=== PATIENT | female | born 1995 | race Caucasian/White ===

== ENCOUNTER 2017-11-05 01:09 | Emergency (ER) | payer OTHER ==
[~2017-11-05] VITALS: Ht 175.3 cm; Wt 117.9 kg
[~2017-11-05 01:09] MED LIST changes: -CEFU500T30 PO; -Percocet 5-3251 EACH PO; -Zofran Odt4 MG SL
[2017-11-05] MEDS ORDERED: CEFU500T30 PO (01:31)
[2017-11-05 02:37] LABS: BASOPHILS ABSOLUTE AUTO 0.02 K/mm3 (0.00-0.23); BASOPHILS PERCENT AUTO 0 % (0-2); EOSINOPHILS ABSOLUTE AUTO 0.03 K/mm3 (0.00-0.68); EOSINOPHILS PERCENT AUTO 0 % (0-6); Hematocrit 43.1 % (33.0-51.0); Hemoglobin 14.4 g/dL (11.5-16.0); IMMATURE GRAN ABSOLUTE AUTO 0.01 K/mm3 (0.00-0.10); IMMATURE GRAN PERCENT AUTO 0 % (0-1); LYMPHOCYTES ABSOLUTE AUTO 1.41 K/mm3 (0.84-5.20); LYMPHOCYTES PERCENT AUTO 19 % (21-46); MONOCYTES ABSOLUTE AUTO 0.68 K/mm3 (0.16-1.47); MONOCYTES PERCENT AUTO 9 % (4-13); Mean Corpuscular HGB 28.1 pg (26.0-34.0); Mean Corpuscular HGB Conc 33.4 g/dL (31.5-36.5); Mean Corpuscular Volume 84 fL (80-100); Mean Platelet Volume 8.9 fL (9.1-12.4); NEUTROPHILS ABSOLUTE AUTO 5.46 K/mm3 (1.96-9.15); NEUTROPHILS PERCENT AUTO 72 % (41-73); Platelet Count 179 K/mm3 (150-400); RDW Standard Deviation 36.6 fL (35.1-46.3); Red Blood Cell Count 5.12 M/mm3 (3.80-5.20); White Blood Cell Count 7.61 K/mm3 (4.00-11.30)
[2017-11-05 02:53] LABS: Anion Gap 9 mmol/L (6-16); Blood Urea Nitrogen 7 mg/dL (8-24); Bun/Creatinine Ratio 8.3 (12.0-20.0); CO2, Blood 26 mmol/L (21-32); Calcium, Blood 8.9 mg/dL (8.5-10.1); Chloride, Blood 104 mmol/L (98-108); Creatinine, Blood 0.84 mg/dL (0.40-1.00); Glomerular Filtration Rate >60 (60-); Glucose, Blood 115 mg/dL (70-99); Potassium, Blood 3.8 mmol/L (3.5-5.5); Sodium, Blood 139 mmol/L (136-145)
[2017-11-05] MEDS ORDERED: Percocet 5-3251 EACH PO (03:26)
[2017-11-05] MEDS ORDERED: Zofran Odt4 MG SL (03:26)
== END 2017-11-05 03:40 | disposition home or self-care (01) ==
LOC: ER 01:09
PROVIDERS: Emergency Medicine
DX: J02.9 Acute pharyngitis, unspecified (principal); E86.0 Dehydration; F17.210 Nicotine dependence, cigarettes, uncomplicated; Z88.2 Allergy status to sulfonamides; Z79.899 Other long term (current) drug therapy
CPT/HCPCS: 36415; 80048; 85025; 86308; 87081; 87430; 96361; 96365; 96375; 99284; J0696; J2405; J2930; J3010; J7030

== ENCOUNTER → 2017-11-05 | Outpatient (CLI) | payer OTHER ==
[~2017-11-05] MED LIST: AMOX500 PO; BIRTH CONTROL; CEFU500T30 PO; CEPH500 PO; CLON1 PO; CRUTCH4 USE; HYDACE10B PO; IBUP400 PO; Indomethacin25 MG PO; LEVSOD50 PO; NAPR550 PO; Norco 5-325 Ta1 EACH PO; OMEP20ER PO; ONDA8ODT MM; Percocet 5-3251 EACH PO; Protonix40 MG PO; RANI150 PO; RXOXYACE PO; Zofran Odt4 MG SL; Zofran4 MG PO; Zofran8 MG PO; [UNRECOGNIZED DRUG - OTHER] PO
== END ==
LOC: LAB 16:07 → LAB SHORT 16:07
DX: Z11.3 Encounter for screening for infections with a predominantly sexual mode of transmission (principal)
CPT/HCPCS: 87070; 87205

== ENCOUNTER 2018-02-02 23:14 | Emergency (ER) | payer OTHER ==
[~2018-02-02] VITALS: Ht 175.3 cm; Wt 117.9 kg
[~2018-02-02 23:14] MED LIST changes: +CEFU500T30 PO; +Percocet 5-3251 EACH PO; +Zofran Odt4 MG SL
[2018-02-03 01:08] LABS: BASOPHILS ABSOLUTE AUTO 0.03 K/mm3 (0.00-0.23); BASOPHILS PERCENT AUTO 0 % (0-2); EOSINOPHILS ABSOLUTE AUTO 0.21 K/mm3 (0.00-0.68); EOSINOPHILS PERCENT AUTO 2 % (0-6); Hematocrit 40.8 % (33.0-51.0); Hemoglobin 13.6 g/dL (11.5-16.0); IMMATURE GRAN ABSOLUTE AUTO 0.03 K/mm3 (0.00-0.10); IMMATURE GRAN PERCENT AUTO 0 % (0-1); LYMPHOCYTES ABSOLUTE AUTO 2.35 K/mm3 (0.84-5.20); LYMPHOCYTES PERCENT AUTO 24 % (21-46); MONOCYTES PERCENT AUTO 7 % (4-13); Mean Corpuscular HGB 28.5 pg (26.0-34.0); Mean Corpuscular HGB Conc 33.3 g/dL (31.5-36.5); Mean Corpuscular Volume 85 fL (80-100); Mean Platelet Volume 8.7 fL (9.1-12.4); NEUTROPHILS ABSOLUTE AUTO 6.34 K/mm3 (1.96-9.15); NEUTROPHILS PERCENT AUTO 66 % (41-73); Platelet Count 246 K/mm3 (150-400); RDW Coefficient Variation 12.7 % (11.7-14.2); RDW Standard Deviation 39.7 fL (35.1-46.3); Red Blood Cell Count 4.78 M/mm3 (3.80-5.20); White Blood Cell Count 9.66 K/mm3 (4.00-11.30)
[2018-02-03 01:26] LABS: Alanine Aminotransfer (ALT/SGP 31 U/L (12-78); Alk Phos 70 U/L (50-136); Anion Gap 8 mmol/L (6-16); Aspartate Aminotrans (AST/SGOT 17 U/L (12-37); Bilirubin, Total 0.4 mg/dL (0.1-1.0); Blood Urea Nitrogen 10 mg/dL (8-24); Bun/Creatinine Ratio 12.9 (12.0-20.0); CO2, Blood 25 mmol/L (21-32); Calcium, Blood 8.6 mg/dL (8.5-10.1); Chloride, Blood 106 mmol/L (98-108); Creatinine, Blood 0.77 mg/dL (0.40-1.00); Glomerular Filtration Rate >60 (60-); Glucose, Blood 85 mg/dL (70-99); Sodium, Blood 139 mmol/L (136-145)
[2018-02-03 01:44] LABS: Source, Urine Voided
[2018-02-03 01:48] LABS: Bilirubin, Urine Neg (Neg); Blood, Urine Neg (Neg); Glucose Qualitative, Urine Neg (Neg); Ketones, Urine Neg (Neg); Leukocyte Esterase, Urine Neg (Neg); Nitrite, Urine Neg (Neg); Protein, Urine Neg (Neg); Specific Gravity, Urine 1.015 (1.003-1.022); Urobilinogen, Urine NORM (Normal)
[2018-02-03 01:54] LABS: Appearance, Urine Clear (Clear); Color, Urine Yellow (P-Yellow)
== END 2018-02-03 03:15 | disposition home or self-care (01) ==
LOC: ER 23:14
PROVIDERS: Emergency Medicine
DX: K62.5 Hemorrhage of anus and rectum (principal); Z88.2 Allergy status to sulfonamides; E03.9 Hypothyroidism, unspecified; F17.210 Nicotine dependence, cigarettes, uncomplicated
CPT/HCPCS: 36415; 80053; 81003; 83690; 85025; 99283

== ENCOUNTER 2018-02-21 20:09 | Emergency (ER) | payer OTHER ==
[2018-02-22] MEDS ORDERED: Verotin-Gr Cap1 EACH PO (10:13)
== END 2018-02-21 21:15 | disposition left against medical advice (07) ==
LOC: ER 20:09
DX: Z53.21 Procedure and treatment not carried out due to patient leaving prior to being seen by health care provider (principal)

== ENCOUNTER 2018-02-22 09:42 | Emergency (ER) | payer OTHER ==
[~2018-02-22] VITALS: Ht 172.7 cm; Wt 117.9 kg
[2018-02-22] MEDS ORDERED: Verotin-Gr Cap1 EACH PO (10:13)
[2018-02-22 10:37] LABS: Bilirubin, Urine Neg (Neg); Blood, Urine 1+ (Neg); Glucose Qualitative, Urine Neg (Neg); Ketones, Urine Neg (Neg); Leukocyte Esterase, Urine Neg (Neg); Nitrite, Urine Neg (Neg); Protein, Urine 1+ (Neg); Urobilinogen, Urine NORM (Normal)
[2018-02-22 10:51] LABS: Appearance, Urine Hazy (Clear); Color, Urine Yellow (P-Yellow)
[2018-02-22 10:52] LABS: Squamous Epithelial Cells Mod /hpf (Few)
[2018-02-22 10:53] LABS: Bacteria Mod /hpf; Red Blood Cells, Urine Not Seen /hpf (0-2)
== END 2018-02-22 11:30 | disposition home or self-care (01) ==
LOC: ER 09:42
PROVIDERS: Emergency Medicine
DX: O20.0 Threatened abortion (principal); Z3A.01 Less than 8 weeks gestation of pregnancy; Z88.2 Allergy status to sulfonamides; Z79.899 Other long term (current) drug therapy; Z87.891 Personal history of nicotine dependence
CPT/HCPCS: 36415; 76801; 81001; 84702; 86900; 86901; 87086

== ENCOUNTER → 2018-09-11 | Outpatient (CLI) | payer OTHER ==
[~2018-09-11] MED LIST changes: +Verotin-Gr Cap1 EACH PO
== END | disposition home or self-care (01) ==
LOC: LAB 11:57 → LAB SHORT 11:57
DX: Z34.00 Encounter for supervision of normal first pregnancy, unspecified trimester (principal)
CPT/HCPCS: 87081; 87653

== ENCOUNTER 2018-09-23 08:34 | Inpatient (IN) | payer OTHER ==
[~2018-09-23] VITALS: Ht 172.7 cm; Wt 0.1 kg
[2018-09-23 09:12] LABS: BASOPHILS ABSOLUTE AUTO 0.02 K/mm3 (0.00-0.23); BASOPHILS PERCENT AUTO 0 % (0-2); EOSINOPHILS ABSOLUTE AUTO 0.21 K/mm3 (0.00-0.68); EOSINOPHILS PERCENT AUTO 2 % (0-6); Hematocrit 36.8 % (33.0-51.0); Hemoglobin 12.1 g/dL (11.5-16.0); IMMATURE GRAN ABSOLUTE AUTO 0.05 K/mm3 (0.00-0.10); IMMATURE GRAN PERCENT AUTO 0 % (0-1); LYMPHOCYTES PERCENT AUTO 17 % (21-46); MONOCYTES PERCENT AUTO 7 % (4-13); Mean Corpuscular HGB 27.1 pg (26.0-34.0); Mean Corpuscular HGB Conc 32.9 g/dL (31.5-36.5); Mean Corpuscular Volume 83 fL (80-100); Mean Platelet Volume 10.1 fL (9.1-12.4); NEUTROPHILS PERCENT AUTO 74 % (41-73); Platelet Count 235 K/mm3 (150-400); RDW Coefficient Variation 13.7 % (11.7-14.2); RDW Standard Deviation 40.9 fL (35.1-46.3); Red Blood Cell Count 4.46 M/mm3 (3.80-5.20); White Blood Cell Count 12.58 K/mm3 (4.00-11.30)
[2018-09-24 05:58] LABS: Hematocrit 29.6 % (33.0-51.0); Hemoglobin 9.4 g/dL (11.5-16.0); Mean Corpuscular HGB 26.9 pg (26.0-34.0); Mean Corpuscular HGB Conc 31.8 g/dL (31.5-36.5); Mean Corpuscular Volume 85 fL (80-100); Mean Platelet Volume 9.8 fL (9.1-12.4); Platelet Count 184 K/mm3 (150-400); RDW Standard Deviation 42.6 fL (35.1-46.3); White Blood Cell Count 11.52 K/mm3 (4.00-11.30)
--- NOTE | 2018-09-24 12:55 | NUR ---
PT DISCHARGED. DISCHARGE INSTRUCTIONS GIVEN. NO QUESTIONS OR CONCERNS AT THIS TIME. PT FOLLOW[facility].
== END 2018-09-24 12:45 | disposition home or self-care (01) | DRG 807 ==
LOC: BC 08:34 → OBS 08:34 → BC 08:46
PROVIDERS: ADMIT Obstetrics & Gynecology
PROC: 10E0XZZ Delivery of Products of Conception, External Approach (ICD-10-PCS; principal; 2018-09-23)
PROC: 6A550ZT Pheresis of Cord Blood Stem Cells, Single (ICD-10-PCS; 2018-09-23)
DX: O99.214 Obesity complicating childbirth (principal); Z37.0 Single live birth; O99.820 Streptococcus B carrier state complicating pregnancy; Z87.891 Personal history of nicotine dependence; O69.81X0 Labor and delivery complicated by cord around neck, without compression, not applicable or unspecified; Z3A.37 37 weeks gestation of pregnancy; O70.9 Perineal laceration during delivery, unspecified
CPT/HCPCS: 36415; 51702; 85025; 85027; J0290; J1885; J2405; J2590; J3010; J7120

== ENCOUNTER → 2019-05-10 | Outpatient (CLI) | payer OTHER | LOC: LAB EV 14:15 → LAB SHORT 14:15 | DX: N39.0 Urinary tract infection, site not specified (principal) | CPT/HCPCS: 87086 ==

== ENCOUNTER 2020-10-09 23:49 | Emergency (ER) | payer OTHER ==
[~2020-10-09] VITALS: Ht 172.7 cm; Wt 138.3 kg
[2020-10-10 00:34] LABS: Source, Urine Clean Catch
[2020-10-10 00:39] LABS: Bilirubin, Urine Neg (Neg); Blood, Urine Neg (Neg); Glucose Qualitative, Urine Neg (Neg); Ketones, Urine Neg (Neg); Leukocyte Esterase, Urine 1+ (Neg); Nitrite, Urine Neg (Neg); Protein, Urine Neg (Neg); Specific Gravity, Urine 1.025 (1.003-1.022); Urobilinogen, Urine NORM (Normal)
[2020-10-10] MEDS ORDERED: ESCI20 PO (00:41)
[2020-10-10] MEDS ORDERED: METF500 PO (00:41)
[2020-10-10 00:52] LABS: Amorphous Light (0-Heavy); Appearance, Urine Hazy (Clear); Bacteria Mod /hpf; Color, Urine Yellow (P-Yellow); Mucus Light (0-Heavy); Red Blood Cells, Urine Not Seen /hpf (0-2); Squamous Epithelial Cells Mod /hpf (Few)
== END 2020-10-10 01:38 | disposition home or self-care (01) ==
LOC: ER 23:49
PROVIDERS: Emergency Medicine
DX: Z32.02 Encounter for pregnancy test, result negative (principal); Z88.2 Allergy status to sulfonamides; Z87.891 Personal history of nicotine dependence
CPT/HCPCS: 81001; 81025; 87086; 99283

== ENCOUNTER 2020-10-16 20:34 | Emergency (ER) | payer OTHER ==
[~2020-10-16] VITALS: Ht 172.7 cm; Wt 138.8 kg
[~2020-10-16 20:34] MED LIST changes: +ESCI20 PO; +METF500 PO
[2020-10-16 23:00] LABS: BASOPHILS ABSOLUTE AUTO 0.03 K/mm3 (0.00-0.23); BASOPHILS PERCENT AUTO 0 % (0-2); EOSINOPHILS ABSOLUTE AUTO 0.25 K/mm3 (0.00-0.68); EOSINOPHILS PERCENT AUTO 2 % (0-6); Hematocrit 39.4 % (33.0-51.0); Hemoglobin 12.8 g/dL (11.5-16.0); IMMATURE GRAN ABSOLUTE AUTO 0.05 K/mm3 (0.00-0.10); IMMATURE GRAN PERCENT AUTO 1 % (0-1); LYMPHOCYTES ABSOLUTE AUTO 2.33 K/mm3 (0.84-5.20); LYMPHOCYTES PERCENT AUTO 22 % (21-46); MONOCYTES ABSOLUTE AUTO 0.66 K/mm3 (0.16-1.47); MONOCYTES PERCENT AUTO 6 % (4-13); Mean Corpuscular HGB 26.7 pg (26.0-34.0); Mean Corpuscular HGB Conc 32.5 g/dL (31.5-36.5); Mean Corpuscular Volume 82 fL (80-100); Mean Platelet Volume 8.8 fL (9.1-12.4); NEUTROPHILS ABSOLUTE AUTO 7.31 K/mm3 (1.96-9.15); NEUTROPHILS PERCENT AUTO 69 % (41-73); Platelet Count 251 K/mm3 (150-400); RDW Coefficient Variation 13.4 % (11.7-14.2); RDW Standard Deviation 39.8 fL (35.1-46.3); White Blood Cell Count 10.63 K/mm3 (4.00-11.30)
[2020-10-16 23:19] LABS: Alanine Aminotransfer (ALT/SGP 52 U/L (12-78); Albumin, Blood 3.7 g/dL (3.4-5.0); Albumin/Globulin Ratio 0.9 (0.8-1.8); Alk Phos 64 U/L (50-136); Anion Gap 5 mmol/L (6-16); Aspartate Aminotrans (AST/SGOT 19 U/L (12-37); Beta HCG, Quantitative, Serum 651 mIU/mL (0-3); Bilirubin, Total 0.2 mg/dL (0.1-1.0); Blood Urea Nitrogen 8 mg/dL (8-24); Bun/Creatinine Ratio 11.8 (12.0-20.0); CO2, Blood 24 mmol/L (21-32); Calcium, Blood 8.9 mg/dL (8.5-10.1); Chloride, Blood 107 mmol/L (98-108); Creatinine, Blood 0.68 mg/dL (0.40-1.00); Glomerular Filtration Rate >60 (60-); Glucose, Blood 121 mg/dL (70-99); Potassium, Blood 3.8 mmol/L (3.5-5.5); Sodium, Blood 136 mmol/L (136-145); Total Protein, Blood 7.7 g/dL (6.4-8.2)
== END 2020-10-16 23:37 | disposition home or self-care (01) ==
LOC: ER 20:34
PROVIDERS: Physician Assistant
DX: O20.9 Hemorrhage in early pregnancy, unspecified (principal); Z3A.00 Weeks of gestation of pregnancy not specified; Z88.2 Allergy status to sulfonamides; Z87.891 Personal history of nicotine dependence; Z79.84 Long term (current) use of oral hypoglycemic drugs
CPT/HCPCS: 76801; 76817; 80053; 84702; 85025; 86900; 86901; 99284-25

== ENCOUNTER → 2020-12-09 | Outpatient (CLI) | payer OTHER | END | disposition home or self-care (01) | LOC: LAB SHORT 16:20 | PROVIDERS: Family Medicine | DX: Z34.91 Encounter for supervision of normal pregnancy, unspecified, first trimester (principal) | CPT/HCPCS: G0123 ==

== ENCOUNTER 2020-12-28 20:31 | Emergency (ER) | payer OTHER ==
[~2020-12-28] VITALS: Ht 172.7 cm; Wt 137.4 kg
[2020-12-28 23:04] LABS: BASOPHILS ABSOLUTE AUTO 0.02 K/mm3 (0.00-0.23); BASOPHILS PERCENT AUTO 0 % (0-2); EOSINOPHILS ABSOLUTE AUTO 0.18 K/mm3 (0.00-0.68); EOSINOPHILS PERCENT AUTO 2 % (0-6); Hematocrit 34.7 % (33.0-51.0); Hemoglobin 11.4 g/dL (11.5-16.0); IMMATURE GRAN ABSOLUTE AUTO 0.05 K/mm3 (0.00-0.10); IMMATURE GRAN PERCENT AUTO 1 % (0-1); LYMPHOCYTES ABSOLUTE AUTO 2.15 K/mm3 (0.84-5.20); LYMPHOCYTES PERCENT AUTO 23 % (21-46); MONOCYTES ABSOLUTE AUTO 0.58 K/mm3 (0.16-1.47); MONOCYTES PERCENT AUTO 6 % (4-13); Mean Corpuscular HGB Conc 32.9 g/dL (31.5-36.5); Mean Corpuscular Volume 82 fL (80-100); NEUTROPHILS ABSOLUTE AUTO 6.52 K/mm3 (1.96-9.15); NEUTROPHILS PERCENT AUTO 69 % (41-73); Platelet Count 210 K/mm3 (150-400); RDW Coefficient Variation 13.7 % (11.7-14.2); RDW Standard Deviation 40.9 fL (35.1-46.3); Red Blood Cell Count 4.23 M/mm3 (3.80-5.20)
[2020-12-28 23:12] LABS: Source, Urine Clean Catch
[2020-12-28 23:15] LABS: Bilirubin, Urine Neg (Neg); Blood, Urine Neg (Neg); Glucose Qualitative, Urine Neg (Neg); Ketones, Urine Neg (Neg); Leukocyte Esterase, Urine Neg (Neg); Nitrite, Urine Neg (Neg); Protein, Urine 1+ (Neg); Urobilinogen, Urine NORM (Normal); pH, Urine 6.5 (5.0-8.0)
[2020-12-28 23:17] LABS: Appearance, Urine Hazy (Clear); Color, Urine Yellow (P-Yellow)
[2020-12-28 23:22] LABS: Amorphous Mod (0-Heavy); Bacteria Not Seen /hpf; Red Blood Cells, Urine 0-2 /hpf (0-2); Squamous Epithelial Cells Few /hpf (Few); White Blood Cells, Urine 0-2 /hpf (0-5)
[2020-12-28 23:40] LABS: Alanine Aminotransfer (ALT/SGP 22 U/L (12-78); Albumin, Blood 3.1 g/dL (3.4-5.0); Albumin/Globulin Ratio 0.8 (0.8-1.8); Alk Phos 58 U/L (50-136); Anion Gap 5 mmol/L (6-16); Aspartate Aminotrans (AST/SGOT 9 U/L (12-37); Bilirubin, Total 0.2 mg/dL (0.1-1.0); Blood Urea Nitrogen 7 mg/dL (8-24); Bun/Creatinine Ratio 9.2 (12.0-20.0); CO2, Blood 25 mmol/L (21-32); Calcium, Blood 8.8 mg/dL (8.5-10.1); Chloride, Blood 108 mmol/L (98-108); Creatinine, Blood 0.76 mg/dL (0.40-1.00); Globulin, Blood 4.1 g/dL (2.2-4.0); Glomerular Filtration Rate >60 (60-); Glucose, Blood 103 mg/dL (70-99); Potassium, Blood 3.5 mmol/L (3.5-5.5); Sodium, Blood 138 mmol/L (136-145); Total Protein, Blood 7.2 g/dL (6.4-8.2)
[2020-12-28 23:42] LABS: Beta HCG, Quantitative, Serum 24935 mIU/mL (0-3)
== END 2020-12-28 23:43 | disposition home or self-care (01) ==
LOC: ER 20:31
PROVIDERS: Physician Assistant; Student in an Organized Health Care Education/Training Program
DX: O20.0 Threatened abortion (principal); Z3A.15 15 weeks gestation of pregnancy; Z88.2 Allergy status to sulfonamides; Z34.92 Encounter for supervision of normal pregnancy, unspecified, second trimester; Z36.0 Encounter for antenatal screening for chromosomal anomalies
CPT/HCPCS: 36415; 76815; 80053; 81001; 84702; 85025; 99284-25

== ENCOUNTER 2021-01-15 15:06 | Emergency (ER) | payer OTHER ==
[~2021-01-15] VITALS: Ht 175.3 cm; Wt 136.1 kg
[2021-01-15] MEDS ORDERED: PRENATAL TABLE1 EAC2 PO (15:27)
[2021-01-15 16:04] LABS: Source, Urine Clean Catch
[2021-01-15 16:09] LABS: BASOPHILS ABSOLUTE AUTO 0.02 K/mm3 (0.00-0.23); BASOPHILS PERCENT AUTO 0 % (0-2); EOSINOPHILS ABSOLUTE AUTO 0.08 K/mm3 (0.00-0.68); EOSINOPHILS PERCENT AUTO 1 % (0-6); Hematocrit 36.1 % (33.0-51.0); Hemoglobin 11.7 g/dL (11.5-16.0); IMMATURE GRAN ABSOLUTE AUTO 0.07 K/mm3 (0.00-0.10); IMMATURE GRAN PERCENT AUTO 1 % (0-1); LYMPHOCYTES ABSOLUTE AUTO 1.13 K/mm3 (0.84-5.20); LYMPHOCYTES PERCENT AUTO 15 % (21-46); MONOCYTES ABSOLUTE AUTO 0.49 K/mm3 (0.16-1.47); MONOCYTES PERCENT AUTO 7 % (4-13); Mean Corpuscular HGB 26.4 pg (26.0-34.0); Mean Corpuscular HGB Conc 32.4 g/dL (31.5-36.5); Mean Corpuscular Volume 82 fL (80-100); Mean Platelet Volume 9.1 fL (9.1-12.4); NEUTROPHILS ABSOLUTE AUTO 5.78 K/mm3 (1.96-9.15); NEUTROPHILS PERCENT AUTO 76 % (41-73); Platelet Count 197 K/mm3 (150-400); RDW Coefficient Variation 13.9 % (11.7-14.2); RDW Standard Deviation 40.8 fL (35.1-46.3); Red Blood Cell Count 4.43 M/mm3 (3.80-5.20); White Blood Cell Count 7.57 K/mm3 (4.00-11.30)
[2021-01-15 16:12] LABS: Appearance, Urine Clear (Clear); Bilirubin, Urine Neg (Neg); Blood, Urine 4+ (Neg); Color, Urine Yellow (P-Yellow); Glucose Qualitative, Urine Neg (Neg); Ketones, Urine 3+ (Neg); Leukocyte Esterase, Urine 1+ (Neg); Nitrite, Urine Neg (Neg); Protein, Urine 2+ (Neg); Urobilinogen, Urine NORM (Normal)
[2021-01-15 16:20] LABS: International Normalized Ratio 0.96; Prothrombin Time Results 10.4 Sec (9.7-11.5)
[2021-01-15 16:28] LABS: Bacteria Mod /hpf; Red Blood Cells, Urine 0-2 /hpf (0-2); Squamous Epithelial Cells Few /hpf (Few); White Blood Cells, Urine 0-2 /hpf (0-5)
[2021-01-15 16:31] LABS: Alanine Aminotransfer (ALT/SGP 25 U/L (12-78); Albumin, Blood 3.2 g/dL (3.4-5.0); Albumin/Globulin Ratio 0.7 (0.8-1.8); Alk Phos 63 U/L (50-136); Anion Gap 6 mmol/L (6-16); Aspartate Aminotrans (AST/SGOT 15 U/L (12-37); Bilirubin, Total 0.3 mg/dL (0.1-1.0); Blood Urea Nitrogen 6 mg/dL (8-24); Bun/Creatinine Ratio 10.2 (12.0-20.0); CO2, Blood 25 mmol/L (21-32); Calcium, Blood 8.4 mg/dL (8.5-10.1); Chloride, Blood 105 mmol/L (98-108); Creatinine, Blood 0.59 mg/dL (0.40-1.00); Globulin, Blood 4.3 g/dL (2.2-4.0); Glomerular Filtration Rate >60 (60-); Glucose, Blood 86 mg/dL (70-99); Potassium, Blood 3.5 mmol/L (3.5-5.5); Sodium, Blood 136 mmol/L (136-145); Total Protein, Blood 7.5 g/dL (6.4-8.2); Uric Acid, Blood 3.5 mg/dL (2.6-6.0)
== END 2021-01-15 16:55 | disposition home or self-care (01) ==
LOC: ER 15:06
PROVIDERS: Physician Assistant
DX: O99.512 Diseases of the respiratory system complicating pregnancy, second trimester (principal); O99.282 Endocrine, nutritional and metabolic diseases complicating pregnancy, second trimester; E03.9 Hypothyroidism, unspecified; O99.212 Obesity complicating pregnancy, second trimester; E66.01 Morbid (severe) obesity due to excess calories; R04.0 Epistaxis; Z3A.17 17 weeks gestation of pregnancy; Z88.2 Allergy status to sulfonamides; Z79.84 Long term (current) use of oral hypoglycemic drugs; Z79.899 Other long term (current) drug therapy
CPT/HCPCS: 36415; 80053; 81001; 83615; 84550; 85025; 85610; 87086; 99283

== ENCOUNTER → 2021-03-31 | Outpatient (CLI) | payer OTHER ==
[~2021-03-31] MED LIST changes: +PRENATAL TABLE1 EAC2 PO
[2021-03-31 18:50] LABS: BASOPHILS ABSOLUTE AUTO 0.03 K/mm3 (0.00-0.23); BASOPHILS PERCENT AUTO 0 % (0-2); EOSINOPHILS ABSOLUTE AUTO 0.12 K/mm3 (0.00-0.68); EOSINOPHILS PERCENT AUTO 1 % (0-6); Hematocrit 36.6 % (33.0-51.0); Hemoglobin 11.8 g/dL (11.5-16.0); IMMATURE GRAN ABSOLUTE AUTO 0.12 K/mm3 (0.00-0.10); IMMATURE GRAN PERCENT AUTO 1 % (0-1); LYMPHOCYTES ABSOLUTE AUTO 1.89 K/mm3 (0.84-5.20); LYMPHOCYTES PERCENT AUTO 17 % (21-46); MONOCYTES ABSOLUTE AUTO 0.57 K/mm3 (0.16-1.47); MONOCYTES PERCENT AUTO 5 % (4-13); Mean Corpuscular HGB 26.7 pg (26.0-34.0); Mean Corpuscular HGB Conc 32.2 g/dL (31.5-36.5); Mean Corpuscular Volume 83 fL (80-100); Mean Platelet Volume 9.1 fL (9.1-12.4); NEUTROPHILS ABSOLUTE AUTO 8.65 K/mm3 (1.96-9.15); NEUTROPHILS PERCENT AUTO 76 % (41-73); Platelet Count 226 K/mm3 (150-400); RDW Coefficient Variation 14.6 % (11.7-14.2); RDW Standard Deviation 44.1 fL (35.1-46.3); Red Blood Cell Count 4.42 M/mm3 (3.80-5.20); White Blood Cell Count 11.38 K/mm3 (4.00-11.30)
== END | disposition home or self-care (01) ==
LOC: LAB 16:40 → LAB SHORT 16:40
PROVIDERS: Family Medicine
DX: Z34.93 Encounter for supervision of normal pregnancy, unspecified, third trimester (principal)
CPT/HCPCS: 82950; 85025

== ENCOUNTER 2021-06-09 21:38 | Inpatient (IN) | payer OTHER ==
[~2021-06-09] VITALS: Ht 172.7 cm; Wt 146.0 kg
[2021-06-09 22:58] LABS: Influenza A, PCR NEGATIVE (NEGATIVE); Influenza B, PCR NEGATIVE (NEGATIVE); Resp Syncytial Virus, PCR NEGATIVE (NEGATIVE); SARS-Cov-2 (COVID-19) PCR, MMC NEGATIVE (NEGATIVE)
[2021-06-09 23:06] LABS: BASOPHILS ABSOLUTE AUTO 0.04 K/mm3 (0.00-0.23); BASOPHILS PERCENT AUTO 0 % (0-2); EOSINOPHILS ABSOLUTE AUTO 0.08 K/mm3 (0.00-0.68); EOSINOPHILS PERCENT AUTO 1 % (0-6); Hematocrit 38.5 % (33.0-51.0); Hemoglobin 12.5 g/dL (11.5-16.0); IMMATURE GRAN ABSOLUTE AUTO 0.12 K/mm3 (0.00-0.10); IMMATURE GRAN PERCENT AUTO 1 % (0-1); LYMPHOCYTES ABSOLUTE AUTO 3.16 K/mm3 (0.84-5.20); LYMPHOCYTES PERCENT AUTO 21 % (21-46); MONOCYTES ABSOLUTE AUTO 0.76 K/mm3 (0.16-1.47); MONOCYTES PERCENT AUTO 5 % (4-13); Mean Corpuscular HGB 25.6 pg (26.0-34.0); Mean Corpuscular HGB Conc 32.5 g/dL (31.5-36.5); Mean Corpuscular Volume 79 fL (80-100); Mean Platelet Volume 9.6 fL (9.1-12.4); NEUTROPHILS ABSOLUTE AUTO 10.79 K/mm3 (1.96-9.15); NEUTROPHILS PERCENT AUTO 72 % (41-73); Platelet Count 255 K/mm3 (150-400); RDW Coefficient Variation 14.7 % (11.7-14.2); RDW Standard Deviation 41.8 fL (35.1-46.3); Red Blood Cell Count 4.89 M/mm3 (3.80-5.20); White Blood Cell Count 14.95 K/mm3 (4.00-11.30)
[2021-06-10] MEDS ORDERED: IBU800 MG PO (13:34)
[2021-06-10] MEDS ORDERED: MASOPHEN325 M3 PO (13:35)
== END 2021-06-10 23:52 | disposition home or self-care (01) | DRG 807 ==
LOC: OBS 21:38 → BC 21:39 → OBS 21:40 → BC 21:41
PROVIDERS: ADMIT Family Medicine
PROC: 10E0XZZ Delivery of Products of Conception, External Approach (ICD-10-PCS; principal; 2021-06-10)
PROC: 0KQM0ZZ Repair Perineum Muscle, Open Approach (ICD-10-PCS; 2021-06-10)
DX: O99.214 Obesity complicating childbirth (principal); Z37.0 Single live birth; O99.344 Other mental disorders complicating childbirth; F32.A Depression, unspecified; Z20.822 Contact with and (suspected) exposure to COVID-19; O70.1 Second degree perineal laceration during delivery; O72.1 Other immediate postpartum hemorrhage; O43.123 Velamentous insertion of umbilical cord, third trimester; Z53.20 Procedure and treatment not carried out because of patient's decision for unspecified reasons; Z87.891 Personal history of nicotine dependence; Z67.20 Type B blood, Rh positive; Z3A.38 38 weeks gestation of pregnancy; Z88.2 Allergy status to sulfonamides; Z79.84 Long term (current) use of oral hypoglycemic drugs; Z79.899 Other long term (current) drug therapy
CPT/HCPCS: 0241U; 36415; 59025; 85025; 86850; 86900; 86901; 99214; A9270; J1885; J2001; J2405; J2590; J3010; J7120

== ENCOUNTER 2021-08-04 13:13 | Day surgery (SDC) | payer OTHER ==
[~2021-08-04] VITALS: Ht 172.7 cm; Wt 136.0 kg
[~2021-08-04 13:13] MED LIST changes: +IBU800 MG PO; +MASOPHEN325 M3 PO
--- NOTE | 2021-08-04 15:41 | NUR ---
08/04/21 1541 Miri Garcia ANTOINETTE AREA PREPPED WITH BETADINE SOLUTION BY NAKITA. ABDOMINAL AREA PREPPED WITH DURAPREP BY RITCHIE.
== END 2021-08-04 17:15 | disposition home or self-care (01) ==
LOC: ORSCSDS 13:13
PROVIDERS: Obstetrics & Gynecology
PROC: 0UT74ZZ Resection of Bilateral Fallopian Tubes, Percutaneous Endoscopic Approach (ICD-10-PCS; principal; 2021-08-04 14:15)
DX: Z30.2 Encounter for sterilization (principal); D28.2 Benign neoplasm of uterine tubes and ligaments; E11.9 Type 2 diabetes mellitus without complications; E06.3 Autoimmune thyroiditis; Z87.891 Personal history of nicotine dependence; Z79.84 Long term (current) use of oral hypoglycemic drugs; Z79.899 Other long term (current) drug therapy; E66.01 Morbid (severe) obesity due to excess calories; Z68.42 Body mass index [BMI] 45.0-49.9, adult
CPT/HCPCS: 82947; 88302; J0171; J2250; J2704; J3010; J7120

== ENCOUNTER 2023-04-28 18:13 | Emergency (ER) | payer OTHER ==
[~2023-04-28] VITALS: Ht 172.7 cm; Wt 145.2 kg
[2023-04-28 18:26] VITALS: BP 167/101
== END 2023-04-28 20:31 | disposition home or self-care (01) ==
LOC: ER 18:13
DX: U07.1 COVID-19 (principal); Z88.2 Allergy status to sulfonamides; Z79.899 Other long term (current) drug therapy; Z28.310 Unvaccinated for COVID-19
CPT/HCPCS: 99282

== ENCOUNTER 2024-03-03 22:36 | Emergency (ER) | payer OTHER ==
[~2024-03-03] VITALS: Ht 170.2 cm; Wt 140.6 kg
[2024-03-03 22:47] VITALS: BP 147/96
[2024-03-03] MEDS ORDERED: Ondansetron 4 MG SoluTab SL ONE (23:10)
[2024-03-03 23:16] LABS: Source, Urine Clean Catch
[2024-03-03 23:31] LABS: Blood, Urine 1+ (Neg); Glucose Qualitative, Urine Neg (Neg); Ketones, Urine Neg (Neg); Leukocyte Esterase, Urine 3+ (Neg); Nitrite, Urine Neg (Neg); Protein, Urine 2+ (Neg); Specific Gravity, Urine 1.015 (1.003-1.022); Urobilinogen, Urine 2+ (Normal); pH, Urine 6.5 (5.0-8.0)
[2024-03-03 23:35] LABS: Appearance, Urine Hazy (Clear); Bilirubin, Urine 2+ (Neg); Color, Urine Yellow (P-Yellow)
[2024-03-03 23:37] LABS: Amorphous Light (0-Heavy); Bacteria Many /hpf; Mucus Mod (0-Heavy); Red Blood Cells, Urine 0-2 /hpf (0-2); Squamous Epithelial Cells Many /hpf (Few); White Blood Cells, Urine 25-50 /hpf (0-5)
[2024-03-03] MEDS ORDERED: Diflucan100 MG PO (23:48)
[2024-03-03] MEDS ORDERED: CEPH500 PO (23:48)
[2024-03-03] MEDS ORDERED: Cephalexin Monohydrate 500 MG Cap PO ONE (23:50)
== END 2024-03-04 00:26 | disposition home or self-care (01) ==
LOC: ER 22:36
PROVIDERS: Physician Assistant
DX: N39.0 Urinary tract infection, site not specified (principal); Z88.2 Allergy status to sulfonamides; Z79.899 Other long term (current) drug therapy; Z79.84 Long term (current) use of oral hypoglycemic drugs; E03.9 Hypothyroidism, unspecified; Z87.891 Personal history of nicotine dependence
CPT/HCPCS: 81001; 87086; 99283; A9270

== ENCOUNTER 2024-03-05 22:29 | Emergency (ER) | payer OTHER ==
[~2024-03-05] VITALS: Ht 170.2 cm; Wt 140.6 kg
[~2024-03-05 22:29] MED LIST changes: +Diflucan100 MG PO
[2024-03-05 22:48] VITALS: BP 145/88
== END 2024-03-06 01:47 | disposition home or self-care (01) ==
LOC: ER 22:29
DX: J02.9 Acute pharyngitis, unspecified (principal); N39.0 Urinary tract infection, site not specified; E03.9 Hypothyroidism, unspecified; Z68.42 Body mass index [BMI] 45.0-49.9, adult; Z79.84 Long term (current) use of oral hypoglycemic drugs; Z79.899 Other long term (current) drug therapy; Z88.2 Allergy status to sulfonamides
CPT/HCPCS: 87077; 87081; 87185; 87430; 99282

== ENCOUNTER 2024-04-10 10:17 | Day surgery (SDC) | payer OTHER ==
[~2024-04-10] VITALS: Ht 170.2 cm; Wt 152.3 kg
[2024-04-10] VITALS (13 sets, daily range): BP systolic 96–153; BP diastolic 73–89
[~2024-04-10 10:17] MED LIST changes: +ACET500 PO; +CeFAZolin Sodium 3,000 MG in NS 100 ML IV SCH; +Diethylpropion25 MG PO; +ESCI10 PO; -ESCI20 PO; +FEROSUL325 M1 PO; -IBU800 MG PO; +LYRICA75 M1 PO; +Lactated Ringer's 1,000 ML IV SCH; -MASOPHEN325 M3 PO; +MEDR10 PO
[2024-04-10] MEDS ORDERED: OMEP20ER PO (12:30)
[2024-04-10] MEDS ORDERED: Bupivacaine 0.5% HCl 5 MG/ML 30MLVIAL ONE (12:31)
[2024-04-10] MEDS ORDERED: Midazolam HCl 1MG / ML 2ML Vial IV ONE (12:45)
[2024-04-10] MEDS ORDERED: propofoL 20 ML IV ONE (13:13)
[2024-04-10] MEDS ORDERED: FentaNYL Citrate 50 MCG/ML 2 ML Injection ONE ×2 (13:14→14:58)
[2024-04-10] MEDS ORDERED: Rocuronium Bromide 10 MG/ML 5ML Injection IV ONE ×3 (13:15→15:29)
[2024-04-10] MEDS ORDERED: Ondansetron HCl 2 MG / ML 2ML Vial ONE (14:38)
[2024-04-10] MEDS ORDERED: Ketorolac Tromethamine 30mg Vial ONE (14:38)
[2024-04-10] MEDS ORDERED: Dexamethasone Sod Phos 10 MG/ML 1ML VIAL ONE (14:38)
[2024-04-10] MEDS ORDERED: Sugammadex Sodium 200 MG/2ML SDV (100 MG/ML) ONE (14:59)
[2024-04-10] MEDS ORDERED: Simethicone 80 MG Chew PO PRN (16:10)
[2024-04-10] MEDS ORDERED: Lactated Ringer's 1,000 ML IV SCH (16:15)
[2024-04-10] MEDS ORDERED: Metoclopramide HCl 10 MG Tab PO PRN (16:15)
[2024-04-10] MEDS ORDERED: Ondansetron HCl 2 MG / ML 2ML Vial IV PRN (16:15)
[2024-04-10] MEDS ORDERED: OxyCODONE HCL 5 MG TAB PO PRN (16:15)
[2024-04-10] MEDS ORDERED: Metoclopramide HCl 5MG / ML 2ML Vial IV PRN (16:15)
[2024-04-10] MEDS ORDERED: Acetaminophen 500 MG Tab PO PRN (16:20)
[2024-04-10] MEDS ORDERED: FLU VACC TS2024-25(6MOS UP)/PF 45 MCG/0.5 ML SYRINGE IM SCH (16:20)
[2024-04-10] MEDS ORDERED: DiphenhydrAMINE HCL 25 MG Cap PO PRN (16:20)
[2024-04-10] MEDS ORDERED: Ondansetron 4 MG TAB PO PRN (16:20)
[2024-04-10] MEDS ORDERED: Ketorolac Tromethamine 30mg Vial IV PRN (16:25)
[2024-04-10] MEDS ORDERED: HYDROmorphone HCl/Pf 1MG SYR IV PRN (16:25)
[2024-04-10] MEDS ORDERED: HYDROmorphone HCl/Pf 1MG SYR ONE (16:43)
--- NOTE | 2024-04-10 18:05 | NUR ---
SURGICAL FLOOR EXTENDED STAY PT ARRIVED TO UNIT AT 1715 TODAY FROM PACU S/P ABD ROBOTIC HYSTER. PT A/OX4 WITH VSS. ABD INCISIONS X 4 OPEN TO AIR, CLOSED WITH TISSUE ADHESIVE. NO DRAINAGE NOTED. AMBULATING IN HALLWAYS AND TO BATHROOM SBA, AWAITING POST OP VOID. TOLERATING JELLO AND WATER AT THIS TIME. IV SL. MEDICATED PER EMAR FOR PAIN, AWAITING ORDERS TO INCREASE DOSAGE PER PT REQUEST. FAMILY AT BEDSIDE. ROOM ORIENTATION PROVIDED. PT CURRENTLY RESTING IN BED, HAS CALL LIGHT IN REACH AND IS ABLE TO MAKE NEEDS KNOWN. WILL REPORT TO ONCOMING LICHA
[2024-04-10] MEDS ORDERED: OXAYDO5 M1 PO (19:16)
--- NOTE | 2024-04-10 22:34 | NUR ---
DISCHARGE FROM SURGICAL UNIT. PT DISCHARGED FROM UNIT AND LEFT FLOOR AT 2200. EDUCATION PROVIDED PRIOR TO LEAVING FLOOR. COVERED DISCHARGE PAPERWORK AND INSTRUCTIONS WITH PT AND FAMILY. SIGNATURE PAGE SIGNED. ALL QUESTIONS ANSWERED AT THIS TIME. IV REMOVED. PERSONAL BELONGINGS SENT WITH PT. PT WHEELED OUT VIA W/C WITH FAMILY. VITAL SIGNS STABLE, A/OX4, PAIN REPORTED 07/28. PT LEFT IN GOOD CONDITION.
[2024-04-11] MEDS ORDERED: Omeprazole 20 MG CapCR PO PRN (06:00)
[2024-04-11] MEDS ORDERED: Citalopram Hydrobromide 20 MG Tab PO SCH (09:00)
== END 2024-04-10 22:00 | disposition home or self-care (01) ==
LOC: ORSCMMR 10:17 → ORD 12:00 → ORSCMMR 12:00 → SURS 17:03 → ORSCMMR 22:00
PROVIDERS: Obstetrics & Gynecology
PROC: 0UT94ZZ Resection of Uterus, Percutaneous Endoscopic Approach (ICD-10-PCS; principal; 2024-04-10 12:00)
DX: N80.03 Adenomyosis of the uterus (principal); N92.1 Excessive and frequent menstruation with irregular cycle; D50.0 Iron deficiency anemia secondary to blood loss (chronic); E06.3 Autoimmune thyroiditis; K21.9 Gastro-esophageal reflux disease without esophagitis; F41.9 Anxiety disorder, unspecified; F32.A Depression, unspecified; M79.7 Fibromyalgia; E66.01 Morbid (severe) obesity due to excess calories; Z68.43 Body mass index [BMI] 50.0-59.9, adult; Z79.899 Other long term (current) drug therapy; Z87.891 Personal history of nicotine dependence
CPT/HCPCS: 86850; 86900; 86901; 88307; 94762; A9270; J0690; J1100; J1171; J1885; J2250; J2405; J2704; J2765; J3010; J7120

== ENCOUNTER 2024-06-09 23:02 | Emergency (ER) | payer OTHER ==
[~2024-06-09] VITALS: Ht 170.2 cm; Wt 13.6 kg
[~2024-06-09 23:02] MED LIST changes: -CeFAZolin Sodium 3,000 MG in NS 100 ML IV SCH; -Lactated Ringer's 1,000 ML IV SCH; +OXAYDO5 M1 PO
[2024-06-09 23:07] VITALS: BP 139/94
[2024-06-09] MEDS ORDERED: Amoxicillin875 MG PO (23:33)
== END 2024-06-09 23:32 | disposition home or self-care (01) ==
LOC: ER 23:02
DX: J02.9 Acute pharyngitis, unspecified (principal); Z88.2 Allergy status to sulfonamides; Z79.1 Long term (current) use of non-steroidal anti-inflammatories (NSAID); Z79.899 Other long term (current) drug therapy
CPT/HCPCS: 87081; 87147; 87430; 99283

== ENCOUNTER 2024-08-06 23:43 | Emergency (ER) | payer OTHER ==
[~2024-08-06] VITALS: Ht 170.2 cm; Wt 149.7 kg
[~2024-08-06 23:43] MED LIST changes: +Amoxicillin875 MG PO
[2024-08-07] MEDS ORDERED: FentaNYL Citrate 50 MCG/ML 2 ML Injection IV PRN (00:15)
[2024-08-07] MEDS ORDERED: Ondansetron HCl 2 MG / ML 2ML Vial IV ONE (00:40)
[2024-08-07 00:43] LABS: BASOPHILS ABSOLUTE AUTO 0.03 K/mm3 (0.00-0.23); BASOPHILS PERCENT AUTO 0 % (0-2); EOSINOPHILS ABSOLUTE AUTO 0.15 K/mm3 (0.00-0.68); EOSINOPHILS PERCENT AUTO 2 % (0-6); Hematocrit 36.5 % (33.0-51.0); Hemoglobin 12.3 g/dL (11.5-16.0); IMMATURE GRAN ABSOLUTE AUTO 0.03 K/mm3 (0.00-0.10); IMMATURE GRAN PERCENT AUTO 0 % (0-1); LYMPHOCYTES ABSOLUTE AUTO 2.41 K/mm3 (0.84-5.20); LYMPHOCYTES PERCENT AUTO 28 % (21-46); MONOCYTES PERCENT AUTO 6 % (4-13); Mean Corpuscular HGB 26.7 pg (26.0-34.0); Mean Corpuscular HGB Conc 33.7 g/dL (31.5-36.5); Mean Corpuscular Volume 79 fL (80-100); Mean Platelet Volume 8.9 fL (9.1-12.4); NEUTROPHILS ABSOLUTE AUTO 5.58 K/mm3 (1.96-9.15); NEUTROPHILS PERCENT AUTO 64 % (41-73); Platelet Count 216 K/mm3 (150-400); RDW Coefficient Variation 13.2 % (11.7-14.2); RDW Standard Deviation 37.1 fL (35.1-46.3)
[2024-08-07] MEDS ORDERED: HYDROmorphone HCl/Pf 1MG SYR IV ONE ×2 (00:55→02:35)
[2024-08-07 01:02] LABS: Albumin, Blood 3.8 g/dL (3.4-5.0); Bilirubin, Total 0.4 mg/dL (0.1-1.0); Bun/Creatinine Ratio 14.6 (12.0-20.0); Calcium, Blood 9.2 mg/dL (8.5-10.1); Creatinine, Blood 0.75 mg/dL (0.40-1.00); Globulin, Blood 3.8 g/dL (2.2-4.0); Potassium, Blood 3.5 mmol/L (3.5-5.5); Total Protein, Blood 7.6 g/dL (6.4-8.2)
[2024-08-07 02:46] LABS: Source, Urine Clean Catch
[2024-08-07 02:47] LABS: Bilirubin, Urine Neg (Neg); Blood, Urine 4+ (Neg); Glucose Qualitative, Urine Neg (Neg); Ketones, Urine Neg (Neg); Leukocyte Esterase, Urine 2+ (Neg); Nitrite, Urine Neg (Neg); Protein, Urine Neg (Neg); Urobilinogen, Urine NORM (Normal); pH, Urine 6.5 (5.0-8.0)
[2024-08-07 02:56] LABS: Appearance, Urine Clear (Clear); Color, Urine Yellow (P-Yellow)
[2024-08-07 02:58] LABS: Bacteria Mod /hpf; Squamous Epithelial Cells Mod /hpf (Few)
[2024-08-07] MEDS ORDERED: NS 1,000 ML IV SCH (03:40)
[2024-08-07] MEDS ORDERED: CefTRIAXone Sodium 2,000 MG in NS 50 ML IV ONE (03:40)
[2024-08-07] MEDS ORDERED: CEPH500 PO (03:58)
[2024-08-07] MEDS ORDERED: Diflucan100 MG PO (04:06)
[2024-08-07] MEDS ORDERED: PHENA200 PO (04:06)
[2024-08-07 04:48] VITALS: BP 148/93
== END 2024-08-07 04:49 | disposition home or self-care (01) ==
LOC: ER 23:43
PROVIDERS: Emergency Medicine
DX: N94.10 Unspecified dyspareunia (principal); N39.0 Urinary tract infection, site not specified; R73.9 Hyperglycemia, unspecified; Z68.43 Body mass index [BMI] 50.0-59.9, adult; Z88.2 Allergy status to sulfonamides; Z79.1 Long term (current) use of non-steroidal anti-inflammatories (NSAID); Z79.899 Other long term (current) drug therapy; Z79.2 Long term (current) use of antibiotics
CPT/HCPCS: 74177; 80053; 81001; 85025; 87086; 96365-59; 96375; 96376; 99284-25; J0696; J1171; J2405; J3010; J7030; Q9967

== ENCOUNTER 2024-09-01 22:41 | Emergency (ER) | payer OTHER ==
[~2024-09-01] VITALS: Ht 170.2 cm; Wt 149.7 kg
[~2024-09-01 22:41] MED LIST changes: -CEFP200 PO
[2024-09-01 22:52] VITALS: BP 154/98
[2024-09-01 23:26] LABS: BASOPHILS ABSOLUTE AUTO 0.03 K/mm3 (0.00-0.23); BASOPHILS PERCENT AUTO 0 % (0-2); EOSINOPHILS ABSOLUTE AUTO 0.22 K/mm3 (0.00-0.68); EOSINOPHILS PERCENT AUTO 2 % (0-6); Hematocrit 37.4 % (33.0-51.0); Hemoglobin 12.1 g/dL (11.5-16.0); IMMATURE GRAN ABSOLUTE AUTO 0.04 K/mm3 (0.00-0.10); IMMATURE GRAN PERCENT AUTO 0 % (0-1); LYMPHOCYTES ABSOLUTE AUTO 2.51 K/mm3 (0.84-5.20); LYMPHOCYTES PERCENT AUTO 27 % (21-46); MONOCYTES ABSOLUTE AUTO 0.62 K/mm3 (0.16-1.47); MONOCYTES PERCENT AUTO 7 % (4-13); Mean Corpuscular HGB 26.1 pg (26.0-34.0); Mean Corpuscular HGB Conc 32.4 g/dL (31.5-36.5); Mean Corpuscular Volume 81 fL (80-100); Mean Platelet Volume 9.1 fL (9.1-12.4); NEUTROPHILS ABSOLUTE AUTO 5.94 K/mm3 (1.96-9.15); NEUTROPHILS PERCENT AUTO 64 % (41-73); Platelet Count 222 K/mm3 (150-400); RDW Coefficient Variation 13.5 % (11.7-14.2); RDW Standard Deviation 38.8 fL (35.1-46.3); Red Blood Cell Count 4.64 M/mm3 (3.80-5.20); White Blood Cell Count 9.36 K/mm3 (4.00-11.30)
[2024-09-01] MEDS ORDERED: Ondansetron HCl 2 MG / ML 2ML Vial IV ONE (23:30)
[2024-09-01] MEDS ORDERED: NS 1,000 ML IV SCH (23:30)
[2024-09-01 23:37] LABS: Source, Urine Clean Catch
[2024-09-01 23:43] LABS: Albumin, Blood 3.7 g/dL (3.4-5.0); Bilirubin, Total 0.3 mg/dL (0.1-1.0); Bun/Creatinine Ratio 15.3 (12.0-20.0); Calcium, Blood 8.6 mg/dL (8.5-10.1); Creatinine, Blood 0.85 mg/dL (0.40-1.00); Globulin, Blood 3.8 g/dL (2.2-4.0); Potassium, Blood 3.9 mmol/L (3.5-5.5); Total Protein, Blood 7.5 g/dL (6.4-8.2)
[2024-09-01 23:48] LABS: Bilirubin, Urine Neg (Neg); Blood, Urine 1+ (Neg); Glucose Qualitative, Urine Neg (Neg); Ketones, Urine Neg (Neg); Leukocyte Esterase, Urine 3+ (Neg); Nitrite, Urine Neg (Neg); Protein, Urine 2+ (Neg); Urobilinogen, Urine NORM (Normal)
[2024-09-01 23:54] LABS: Appearance, Urine Hazy (Clear); Color, Urine Yellow (P-Yellow); Squamous Epithelial Cells Few /hpf (Few); White Blood Cells, Urine 50-100 /hpf (0-5)
[2024-09-01 23:55] LABS: Amorphous Light (0-Heavy); Bacteria Mod /hpf
[2024-09-02] MEDS ORDERED: Cefpodoxime Proxetil 200 MG Tab PO ONE (00:10)
[2024-09-02] MEDS ORDERED: CEFP200 PO (00:12)
[2024-09-02] MEDS ORDERED: Cranberry Extract 250MG W/30 MG Vitamin C Tab PO ONE (00:15)
[2024-09-02] MEDS ORDERED: Ketorolac Tromethamine 15mg Vial IV ONE (00:15)
== END 2024-09-02 00:43 | disposition home or self-care (01) ==
LOC: ER 22:41
PROVIDERS: Student in an Organized Health Care Education/Training Program
DX: N39.0 Urinary tract infection, site not specified (principal); Z88.2 Allergy status to sulfonamides; Z79.899 Other long term (current) drug therapy; Z79.2 Long term (current) use of antibiotics
CPT/HCPCS: 76770; 80053; 81001; 85025; 87086; 96374; 96375; 99284-25; A9270; J1885; J2405; J7030

== ENCOUNTER → 2024-09-01 | Outpatient (CLI) | payer OTHER ==
[~2024-09-01] MED LIST changes: +CEFP200 PO; +PHENA200 PO
== END ==
LOC: LAB 10:30 → LAB SHORT 10:30
DX: R30.0 Dysuria (principal)
CPT/HCPCS: 87086

== ENCOUNTER → 2024-09-15 | Outpatient (CLI) | payer OTHER ==
[~2024-09-15] MED LIST changes: +CEFP200 PO
[2024-09-15 20:30] LABS: Bacterial Vaginosis PCR Negative (NEGATIVE); Candida Group, PCR NOT DETECTED (NOT DETECT); Candida glabrata-krusei, PCR NOT DETECTED (NOT DETECT)
== END | disposition home or self-care (01) ==
LOC: LAB 17:06 → LAB SHORT 17:06
PROVIDERS: Obstetrics & Gynecology
DX: N76.0 Acute vaginitis (principal)
CPT/HCPCS: 81515

== ENCOUNTER → 2024-12-09 | Outpatient (CLI) | payer OTHER ==
[2024-12-09 16:16] LABS: U Amphetamine Screen Not Detected; U Barbituate Screen Not Detected; U Benzodiazapine Screen DETECTED; U Buprenorphine Screen Not Detected; U Cannabinoids Screen Not Detected; U Cocaine Screen Not Detected; U Methadone Screen Not Detected; U Methamphetamine Screen Not Detected; U Opiates Screen DETECTED; U Oxycodone Screen Not Detected; U Phencyclidine Screen Not Detected
== END | disposition home or self-care (01) ==
LOC: LAB SHORT 15:23 → LAB 15:23
PROVIDERS: Nurse Practitioner Family
DX: Z51.81 Encounter for therapeutic drug level monitoring (principal); Z79.891 Long term (current) use of opiate analgesic

== ENCOUNTER 2025-01-22 18:36 | Emergency (ER) | payer OTHER ==
[~2025-01-22] VITALS: Ht 170.2 cm; Wt 144.7 kg
[2025-01-22 18:43] VITALS: BP 139/89
[2025-01-22 20:04] LABS: BASOPHILS ABSOLUTE AUTO 0.03 K/mm3 (0.00-0.23); BASOPHILS PERCENT AUTO 0 % (0-2); EOSINOPHILS ABSOLUTE AUTO 0.24 K/mm3 (0.00-0.68); EOSINOPHILS PERCENT AUTO 3 % (0-6); Hematocrit 40.0 % (33.0-51.0); Hemoglobin 13.5 g/dL (11.5-16.0); IMMATURE GRAN ABSOLUTE AUTO 0.03 K/mm3 (0.00-0.10); IMMATURE GRAN PERCENT AUTO 0 % (0-1); LYMPHOCYTES ABSOLUTE AUTO 2.07 K/mm3 (0.84-5.20); LYMPHOCYTES PERCENT AUTO 24 % (21-46); MONOCYTES ABSOLUTE AUTO 0.59 K/mm3 (0.16-1.47); MONOCYTES PERCENT AUTO 7 % (4-13); Mean Corpuscular HGB Conc 33.8 g/dL (31.5-36.5); Mean Corpuscular Volume 81 fL (80-100); NEUTROPHILS ABSOLUTE AUTO 5.84 K/mm3 (1.96-9.15); NEUTROPHILS PERCENT AUTO 67 % (41-73); NRBC ABSOLUTE 0.00 K/mm3 (0.00-0.02); NRBC Auto 0.0 /100 WBC (0.0-0.2); Platelet Count 224 K/mm3 (150-400); RDW Coefficient Variation 13.1 % (11.7-14.2); RDW Standard Deviation 38.5 fL (35.1-46.3)
[2025-01-22 20:24] LABS: Alanine Aminotransfer (ALT/SGP 105.0 U/L (12-78); Albumin, Blood 4.2 g/dL (3.4-5.0); Albumin/Globulin Ratio 1.1 (0.8-1.8); Anion Gap 11.0 mmol/L (3-11); Aspartate Aminotrans (AST/SGOT 45.0 U/L (12-37); Bilirubin, Total 0.7 mg/dL (0.1-1.0); Blood Urea Nitrogen 13.0 mg/dL (8-24); CO2, Blood 24.0 mmol/L (21-32); Calcium, Blood 9.1 mg/dL (8.5-10.1); Chloride, Blood 104.0 mmol/L (98-108); Creatinine, Blood 0.78 mg/dL (0.40-1.00); Globulin, Blood 3.9 g/dL (2.2-4.0); Glucose, Blood 99.0 mg/dL (70-99); Potassium, Blood 3.7 mmol/L (3.5-5.5); Sodium, Blood 135.0 mmol/L (136-145); Total Protein, Blood 8.1 g/dL (6.4-8.2)
[2025-01-22] MEDS ORDERED: NS 1,000 ML IV SCH (23:20)
[2025-01-22] MEDS ORDERED: Glycerin Adult Supp 1 EA PR ONE (23:30)
[2025-01-22] MEDS ORDERED: DOCU100 PO (23:30)
== END 2025-01-23 00:30 | disposition home or self-care (01) ==
LOC: ER 18:36
PROVIDERS: Emergency Medicine
DX: E86.0 Dehydration (principal); E66.813 Obesity, class 3; E63.8 Other specified nutritional deficiencies; Z68.42 Body mass index [BMI] 45.0-49.9, adult; Z59.89 Other problems related to housing and economic circumstances; Z88.2 Allergy status to sulfonamides; Z79.2 Long term (current) use of antibiotics; Z79.899 Other long term (current) drug therapy
CPT/HCPCS: 36415; 74177; 80053; 82248; 83605; 83735; 84100; 85025; 96360; 99283-25; A9270; J7030; Q9967

== ENCOUNTER → 2025-03-10 | Outpatient (CLI) | payer OTHER ==
[~2025-03-10] MED LIST changes: +DOCU100 PO
== END | disposition home or self-care (01) ==
LOC: LAB SHORT 18:20 → LAB 18:20
DX: N39.0 Urinary tract infection, site not specified (principal)
CPT/HCPCS: 87086